=== PATIENT | male | born 1985 | race Caucasian/White ===

== ENCOUNTER 2017-09-21 14:47 | Emergency (ER) | payer OTHER ==
[~2017-09-21] VITALS: Ht 190.5 cm; Wt 113.4 kg
--- NOTE | 2017-09-21 14:51 | ER Report ---
History and Physical Time Seen By MD: 14:51 HPI/ROS CHIEF COMPLAINT: Left rib pain HISTORY OF PRESENT ILLNESS: This is a 32-year-old male who presents to the emergency department for left rib pain. Patient states that he was up the [place] about 1 hour prior to arrival and hit a tree with the left side of his chest. The wind was knocked out of him to come in few minutes to as himself and he did snowboard the rest of the way down. Patient states it's painful to turn to the left and feels some crepitation. Patient denies shortness of breath. Patient denies aches, chills, nausea, vomiting, diarrhea. The patient states he did have one episode of nausea but that has since then past. Patient denies LOC or C-spine pain. REVIEW OF SYSTEMS: Respiratory: No cough, no dyspnea. Cardiovascular: No chest pain, no palpitations. Gastrointestinal: As above. Musculoskeletal: As above. Allergies: Coded Allergies: No Known Drug Allergies (Unverified , 09/21/17) Home Meds No Active Prescriptions or Reported Meds Past Medical/Surgical History Patient has a past medical and surgical history of liver disease, depression and anxiety. Reviewed Nurses Notes: Yes Constitutional Vital Sign - Last 24 Hours 09/21/17 09/21/17 14:54 16:21 Pulse 90 89 Resp 20 20 B/P (MAP) 137/90 135/87 (103) Pulse Ox 92 92 O2 Delivery Room Air Physical Exam General Appearance: The patient is alert, has no immediate need for airway protection and no current signs of toxicity. Eyes: Pupils equal and round no injection. Respiratory: Chest is non tender, lungs are clear to auscultation. Cardiac: regular rate and rhythm, no murmurs, clicks or rubs. Gastrointestinal: Abdomen is soft and non tender, no masses, bowel sounds normal. Musculoskeletal: Neck: Neck is supple and non tender. Left rib pain midaxillary just below the left nipple. No flail chest or crepitus felt. Extremities have full range of motion and are non tender. Skin: No rashes or lesions. DIFFERENTIAL DIAGNOSIS: After history and physical exam differential diagnosis was considered for contusion, rib fracture and pneumothorax. Medical Decision Making EKG/Imaging Imaging Location: [facility] Patient: Paulino Pearce : 1985 Visit/Account:[id number] Date of Sevice: 09/21/2017 EXAMINATION: Left Ribs with PA And Lateral Chest 09/21/2017 2:57 PM HISTORY: rib trauma COMPARISON: None FINDINGS: Ribs: BBs blake the area of concern over the lower left ribs. No rib fracture or displacement evident. Cardiomediastinal contours: Normal Lungs and pleura: Normal Other bones/soft tissues: Several midthoracic vertebral wedging is probably chronic/developmental. No acute-appearing bony finding. IMPRESSION: 1. Negative left ribs. 2. No acute cardiopulmonary finding. Report Dictated By: Eric Stone MD at 09/21/2017 3:27 PM Report E-Signed By: Eric Stone MD at 09/21/2017 3:32 PM WSN:[id number] ED Course/Re-evaluation ED Course The patient was admitted to room. A history and physical were obtained. Differential diagnoses were considered. A 2 view chest x-ray with left ribs were obtained. No rib fractures were identified on the x-rays. I did review these results with the patient and told him this is likely a contusion of his ribs. It till him to take anti-inflammatories for his pain, can alternate ice and heat, and apply a splint to the affected area when he's coughing, sneezing and also encouraged patient to deep breathe every 1-2 hours while awake. Patient was also encouraged to follow-up with his primary care provider if no improvement next 5-7 days. Patient was also encouraged to return to the emergency department for any other concerns or worsening symptoms including shortness of breath or chest pain. Patient had no other questions or concerns at this time and was discharged home. Decision to Disposition Date: Sep 21, 2017 Decision to Disposition Time: 16:08 Depart Departure Latest Vital Signs Vital Signs Date Time Temp Pulse Resp B/P (MAP) Pulse Ox O2 Delivery O2 Flow Rate FiO2 09/21/17 16:21 89 20 135/87 (103) 92 09/21/17 14:54 Room Air Impression: Primary Impression: Contusion of rib on left side Condition: Improved Disposition: HOME OR SELF-CARE New Scripts No Active Prescriptions or Reported Meds Patient Instructions: Rib Contusion (ED) Additional Instructions: Drink plenty of water. Get plenty of rest. Take 800 mg ibuprofen every 8 hours as needed for pain. When coughing, sneezing or stretching apply splint to left ribs. Be sure to do some deep breathing exercises every 1-2 hours while awake. If you have any shortness breath or increased chest pain be sure to follow up with the [place] emergency department for reevaluation. Problem Qualifiers Primary Impression: Contusion of rib on left side Encounter type: initial encounter Qualified Codes: S20.212A - Contusion of left front wall of thorax, initial encounter PURNIMA FELICIANOP-BC Sep 21, 2017 14:51
--- NOTE | 2017-09-21 15:35 | RADIOLOGY IMAGING REPORT ---
[place] [facility] [place] Paulino Pearce : 1985 MR: [id number] V: [id number] EXAM DATE: ORDERING PHYSICIAN: PURNIMA FELICIANO TECHNOLOGIST: Location: [facility] Patient: Paulino Pearce : 1985 Visit/Account:[id number] Date of Sevice: 09/21/2017 EXAMINATION: Left Ribs with PA And Lateral Chest 09/21/2017 2:57 PM HISTORY: rib trauma COMPARISON: None FINDINGS: Ribs: BBs blake the area of concern over the lower left ribs. No rib fracture or displacement evident . Cardiomediastinal contours: Normal Lungs and pleura: Normal Other bones/soft tissues: Several midthoracic vertebral wedging is probably chronic/developmental. No acute-appearing bony finding. IMPRESSION: 1. Negative left ribs. 2. No acute cardiopulmonary finding. Report Dictated By: Eric Stone MD at 09/21/2017 3:27 PM Report E-Signed By: Eric Stone MD at 09/21/2017 3:32 PM WSN:[id number]
--- NOTE | 2017-09-21 15:35 | RADIOLOGY IMAGING REPORT ---
FACILITY: PATIENT NAME: Paulino Pearce : 1985 MR: [id number] V: [id number] EXAM DATE: ORDERING PHYSICIAN: PURNIMA FELICIANO TECHNOLOGIST: Location: [facility] [place] Patient: Paulino Pearce : 1985 Visit/Account:[id number] Date of Sevice: 09/21/2017 EXAMINATION: Left Ribs with PA And Lateral Chest 09/21/2017 2:57 PM HISTORY: rib trauma COMPARISON: None FINDINGS: Ribs: BBs blake the area of concern over the lower left ribs. No rib fracture or displacement evident . Cardiomediastinal contours: Normal Lungs and pleura: Normal Other bones/soft tissues: Several midthoracic vertebral wedging is probably chronic/developmental. No acute-appearing bony finding. IMPRESSION: 1. Negative left ribs. 2. No acute cardiopulmonary finding. Report Dictated By: Eric Stone MD at 09/21/2017 3:27 PM Report E-Signed By: Eric Stone MD at 09/21/2017 3:32 PM WSN:[id number]
[2017-09-21 16:21] VITALS: BP 135/87
== END 2017-09-21 16:22 | disposition home or self-care (01) ==
LOC: ER 14:53
DX: S20.212A Contusion of left front wall of thorax, initial encounter (principal)
CPT/HCPCS: 71046; 71100; 99283